=== PATIENT | female | born 1965 | race Caucasian/White ===

== ENCOUNTER 2017-12-02 10:15 | Outpatient (REF) | payer BC, SELFPAY ==
--- NOTE | 2017-12-02 09:50 | PAPFT_PTH ---
PATIENT: CATHIE DUNN LOC: [facility] U#:[id number] AGE/SX: 52/F ROOM: RE12/02/[address]: PEDRO Dia : 1965 BED: DIS: 12/02/2017 SPEC #: [id number] RECD: 12/02/17 13:20 STATUS: [facility]NER #: [id number] MARY: 12/02/17 09:[address]: Vero Dinh [facility] Cytology RECD BY: Monisha Perdomo ENTERED: 12/02/17 13:20 SP TYPE: PAPFT OTHR DR: Eitan Apodaca Tissues: 1 - CX/ENDOCX FOR PAP SMEARS Procedures: PAP THIN PREP/UVM Screening HPV DNA PROBE Comments: [id number]
== END 2017-12-02 10:35 ==
LOC: LBN 10:15
PROVIDERS: PCP Naturopath; Visit Provider Nurse Practitioner Family
DX: Z12.4 Encounter for screening for malignant neoplasm of cervix (principal); Z11.51 Encounter for screening for human papillomavirus (HPV)
CPT/HCPCS: 88142; 87624

== ENCOUNTER 2018-12-15 09:13 | Emergency (ER) | payer BC, SELFPAY ==
--- NOTE | 2018-12-15 09:15 | W.ED.GENAD ---
Discharge Plan Disposition Patient Disposition: HOME Condition: Good Discharge Details Chief Complaint: Orthopedic Clinical Impression: Locking of right knee, Arthritis of knee, right Primary Care Provider: Eitan Apodaca ED Provider: Christos Sim Home Meds and New Rx's Prescriptions: New diclofenac sodium 1 % gel 2 gm TP QID Qty: 100 RF: 0 prednisone 50 MG tablet 50 mg PO DAILY Qty: 5 RF: 0 No Action lysine [L-Lysine] 500 mg Tablet 500 mg PO DAILY RF: 0 Discharge Instructions Instructions: Osteoarthritis (ED) Additional Instructions: At this time I feel that you have notable arthritis and degeneration in your right knee, which is led to an injury to your meniscus and subsequently the locking that you are experiencing. I know we have discussed the risks and benefits of prescribed medical therapy. We will be placing an orthopedic referral for you for close follow-up. If you notice any worsening of your symptoms, or any new symptoms such as worsening pain in her knee, redness, rash, vomiting, diarrhea, fever, chills, shortness of breath, chest pain, numbness, weakness, or fainting , please return immediately to the emergency department for reevaluation. Please follow up with your primary care provider as soon as possible for reassessment and reevaluation. As always, it was a pleasure participating in your medical care today. I would recommend the following options: 1) topical Voltaren cream to help with the inflammation 2) if you do not use the cream you can take 600 mg of ibuprofen every 6 hours and 1000 mg of Tylenol every 6 hours 3) an oral steroid, prednisone, can help significantly decrease the inflammation. Take as directed. 4) if these therapies are not effective a knee injection of steroids can also be very effective. 5) continue to ice your knee, use your cane, and regularly stretch your knee. Stand Alone Forms: Work Release Medical Decision Making This is a 53-year-old female with no significant past medical history who presents today for evaluation of right knee pain and locking. The patient states that she has chronic bilateral knee pain, worse with ambulation and movement. She denies any falls or traumas in the past. Her work requires her to go up and down multiple stairs throughout the day, she states that she gets thousands of steps and every day. Last night when she was in her bathtub her knee locked up and she has been unable to unlock it since then. Maximum extension point is roughly 20 degrees off straight. She can flex it well without difficulty. Exam demonstrates no tenderness on palpation of the knee, however there is mild crepitus in both knees. Her knee certainly seems to be locked in significant pain is elicited when nearing the point of complete extension. Signs and symptoms are concerning for chronic meniscal injury and arthritis leading to a small tear and subsequent locking. We will get an x-ray for further evaluation, however I do feel that the patient would benefit from outpatient orthopedic follow-up. Patient is certainly hesitant about oral Western medicines, we have begun a discussion on NSAIDs, topical NSAIDs, and steroids. 10:52 AM X-ray shows evidence of mild degenerative changes. Clinically I do feel that she has a mild chronic meniscal injury secondary to her degenerative changes with subsequent intermittent locking because of this. I discussed Western medicine versus alternative treatments. At this time my recommendation is topical NSAIDs versus oral NSAIDs versus steroids versus intra-joint injection. At this time the patient would like prescription and information for these, and she will decide which when she is comfortable with. I had a long discussion regarding all the risks and benefits of these medications including potential side effects. We will place a referral for an radiation control specialist for further assessment. Patient is able to ambulate well with a cane, and will continue use with this. I have extensively reviewed the treatment plan and discharge instructions with the patient and their family. I have addressed all patient concerns at this time. The patient and family was made aware of what symptoms to monitor for that would warrant a return to the emergency department. Discussed the plan with the patient and family, they demonstrate verbal understanding and agreement with our assessment and plan at this time. EXAM: XR KNEE RT 3V AP,LAT,KELLY INDICATION: locked right knee and pain. COMPARISON: No exams were available for comparison TECHNIQUE: 2D digital imaging was performed. FINDINGS: Four views were obtained. There is mild marginal osteophyte formation of the bones of the knee. No other significant abnormality seen. IMPRESSION: Minimal degenerative changes. HPI General Date/Time Provider Initiated Documentation: 12/15/18 09:14. HPI Narrative: This is a 53-year-old female with no significant past medical history who presents today for evaluation of right knee pain. Patient states that she works at [employer], where she is constantly on her knees, walking thousands of steps every day up and down stairs. She has had chronic pain in her knees bilaterally as well as crepitus like sound, however last night when she was in the bathtub she bent her knees and she was unable to straighten the right knee after that. Pain is worse with ambulation and she has significant pain with bearing weight. Pain is located only in the knee, with no radiation to the malone, calf or thigh. She denies any recent fall or trauma, recent long trips or hiking, or previous injury. 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 She has not used any remedies for her knee though. She denies any other complaints at this time. No other modifying factors. She denies any family history of gout. Related Data Home Medications Medication Instructions Recorded Confirmed diclofenac sodium 2 gm TP QID #100 gm 12/15/18 lysine [L-Lysine] 500 mg PO DAILY 12/15/18 12/15/18 prednisone 50 mg PO DAILY #5 tab 12/15/18 Previous Rx's Medication Instructions Recorded diclofenac sodium 2 gm TP QID #100 gm 12/15/18 prednisone 50 mg PO DAILY #5 tab 12/15/18 Allergies Allergy/AdvReac Type Severity Reaction Status Date / Time rice Allergy Intermediate runny nose Verified 12/02/17 09:02 and cough triamcinolone AdvReac Mild Unverified 04/20/16 08:48 almonds Allergy Intermediate runny nose Uncoded 12/02/17 09:11 and cough eggs Allergy Intermediate runny nose Uncoded 12/02/17 09:04 cough green and yellow beans Allergy Intermediate runny nose Uncoded 12/02/17 09:10 and cough potatoes Allergy Intermediate runny nose Uncoded 12/02/17 09:10 and cough environmental Allergy Uncoded 12/01/12 11:19 Review of Systems Review of Systems ROS Unobtainable: All systems reviewed & are unremarkable except as noted in HPI and below PFSH Social History (Updated 12/01/17 @ 08:25 by Aditi Dalal LPN) Smoking/Tobacco Use Status: Never Alcohol Intake: never Drug use: Never Substance use type: does not use Number of Children: 1 current occupation: works at [employer] What is your relationship status?: Panel score (0-1 are the most socially isolated patients): 1 What type of physical activity do you participate in: walking Seatbelt use: always Do you feel safe at home: Yes Do you feel safe in your relationship?: Yes Exam Narrative Exam Narrative: 1.Const: Well-nourished, Well-developed, appearing stated age 2.Eyes: PERRL, no conjunctival injection, and symmetrical lids. 3.ENT: Atraumatic external nose and ears. Moist MM. Neck: Symmetric, trachea midline, No thyromegaly. 4.CVS: +S1/S2, No murmurs or gallops. Peripheral pulses 2+ and equal in all extremities. Brisk capillary refill in all extremities. 5.RESP: Unlabored respiratory effort. Clear to auscultation bilaterally. No wheezes rales or rhonchi 6.GI: Soft, Nontender/Nondistended, No hepatosplenomegaly. No guarding or rebound. 7.MSK: Normocephalic/Atraumatic, Extremities w/o deformity or ttp No cyanosis or clubbing. Right knee: The knee is stable to varus, valgus, and anterior drawer stress. Mild crepitus with flexion and extension. Unable to completely extend and locked at 20 degrees from complete extension. There is mild midline pain with valgus stressing. No pain with the other movements. No deformity. Pain with Herminia's test.. Patient is unable to bear weight on the right knee. No edema or warmth to the joint. No ttp to the patella, tibial plateau, or fibular head. No calf tenderness. Left knee: Left knee demonstrates normal movement, no pain with stressing, mild crepitus. 8.Skin: Warm, Dry. No rashes or lesions. 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 Sensation grossly intact, no focal neurologic deficits. 10.Psych: (AAO) x3. Appropriate mood and affect
[2018-12-15 09:16] VITALS: BP 155/102; PULSE 90; RESP 20; TEMP 36.6; O2SAT 99
--- NOTE | 2018-12-15 09:28 | DI.RAD_ITS ---
EXAM: XR KNEE RT 3V AP,LAT,KELLY INDICATION: locked right knee and pain. COMPARISON: No exams were available for comparison TECHNIQUE: 2D digital imaging was performed. FINDINGS: Four views were obtained. There is mild marginal osteophyte formation of the bones of the knee. No other significant abnormality seen. IMPRESSION: Minimal degenerative changes.
[2018-12-15 11:02] VITALS: BP 155/102; PULSE 90; RESP 20; TEMP 36.6; O2SAT 99
== END 2018-12-15 11:02 | disposition home or self-care (01) ==
PROVIDERS: Emergency Provider Student in an Organized Health Care Education/Training Program; PCP Naturopath
DX: M23.91 Unspecified internal derangement of right knee (principal); M17.11 Unilateral primary osteoarthritis, right knee
CPT/HCPCS: 73562; 99283

== ENCOUNTER 2018-12-28 12:57 | Outpatient (CLI) | payer BC, SELFPAY ==
--- NOTE | 2018-12-28 11:21 | DI.RAD_ITS ---
EXAM: XR KNEE RT 1V INDICATION: R knee pain. COMPARISON: No exams were available for comparison TECHNIQUE: 2D digital imaging was performed. FINDINGS: An AP weight-bearing image of the right knee is provided. The bony structures are normally mineraliz ed. The tibial femoral joints are intact.
== END 2018-12-28 13:17 ==
PROVIDERS: PCP Naturopath; Visit Provider Physician Assistant
DX: M25.561 Pain in right knee (principal)
CPT/HCPCS: 73560

== ENCOUNTER 2019-10-11 03:58 | Outpatient (CLI) | payer BC, SELFPAY ==
[2019-10-11 09:27] LABS: Abs Immature Grans 0.01 10^3/uL (0.0-0.06); Absolute Basophil Count 0.03 10^3/uL (0.0-0.2); Absolute Eosinophil Count 0.07 10^3/uL (0.0-0.7); Absolute Monocyte Count 0.29 10^3/uL (0.1-0.8); Absolute Neutrophil Count 3.04 10^3/uL (1.2-6.7); Basophils % 0.6; Eosinophils % 1.4; HCT 40.9 % (36.0-46.0); HGB 13.4 g/dL (11.2-15.7); Immature Grans % 0.2; Lymphocytes % 31.7; MCH 29.5 pg (27.0-33.0); MCHC 32.8 % (32.0-36.0); MCV 89.9 fL (80-95); MPV 9.9 fL (8.0-11.0); Monocytes % 5.8; Neutrophils % 60.3; Nucleated RBC 0 %; Platelet Count 277 10^3/uL (130-400); RBC 4.55 10^6/uL (3.93-5.22); RDW 12.5 % (11.7-14.6); RDW-SD 41.4 fL; WBC 5.04 10^3/uL (4.4-10.8)
[2019-10-11 10:34] LABS: ALT 24 U/L (14-59); AST 18 U/L (15-37); Alkaline Phosphatase 73 U/L (46-116); Anion Gap 7.7 mmol/L (3-11); BUN 13 mg/dL (7-18); Bilirubin, Total 0.5 mg/dL (0.2-1.0); CO2 29.3 mmol/L (21.0-32.0); CREATININE 0.82 mg/dL (0.55-1.02); Calcium 9.1 mg/dL (8.5-10.1); Chloride 103 mmol/L (98-107); FREE T4 1.04 ng/dL (0.76-1.46); Glucose 103 mg/dL (74-106); Magnesium 2.1 mg/dL (1.8-2.4); Potassium 4.9 mmol/L (3.5-5.1); Sodium 140 mmol/L (136-145); TSH 1.87 uIU/mL (0.36-3.74); Total Protein 7.2 g/dL (6.4-8.2)
[2019-10-11 16:51] LABS: T3,Free 3.5 pg/mL (2.8-5.3)
== END 2019-10-11 04:18 ==
PROVIDERS: PCP Naturopath; Visit Provider Naturopath
DX: B89 Unspecified parasitic disease (principal); R42 Dizziness and giddiness; K59.00 Constipation, unspecified; R53.83 Other fatigue; R05 Cough; R14.0 Abdominal distension (gaseous); J30.9 Allergic rhinitis, unspecified; L30.9 Dermatitis, unspecified
CPT/HCPCS: 36415; 80053; 83735; 84439; 84443; 84480; 84481; 85025

== ENCOUNTER 2019-10-12 16:26 | Outpatient (REF) | payer BC, SELFPAY | END 2019-10-12 16:46 | LOC: LBN 16:26 | PROVIDERS: PCP Naturopath; Visit Provider Naturopath | DX: B89 Unspecified parasitic disease (principal); R53.83 Other fatigue; R05 Cough; R14.0 Abdominal distension (gaseous); R42 Dizziness and giddiness; K59.00 Constipation, unspecified; J30.9 Allergic rhinitis, unspecified; L30.9 Dermatitis, unspecified | CPT/HCPCS: 87177 ==